=== PATIENT | female | born 1990 | race Caucasian/White ===

== ENCOUNTER → 2021-09-01 | Outpatient (CLI) | payer BC ==
--- NOTE | 2021-09-01 16:42 | MR ---
EXAMINATION TYPE: MR cspine/tspine/lspine wo con DATE OF EXAM: 09/01/2021 COMPARISON: HISTORY: Neck pain, mid back pain, and low back pain down left leg for 18 years CONTRAST: Performed utilizing 0 mL intravenous Gadavist gadolinium contrast. TECHNIQUE: Multiplanar multiecho imaging on a 3.0 Hannah magnet is performed through the entire spine FINDINGS: Cervical spine: Cervical spinal cord appears normal. Vertebral body alignment appears normal. There m ay be some minimal disc bulging present at C4-C5 without cord contact. Minimal right paracentral disc bulge is present at the C3-4 level identified in the axial plane not as apparent in the sagittal montez ne. Disc heights appear preserved. Some mild diffuse disc desiccation is present. No spinal canal charla nosis or neural foraminal stenosis is present. Thoracic spine: Spinal cord maintains normal signal. There is slight exaggeration of the mid thoracic kyphosis. Disc height are preserved. Vertebral body heights are preserved. No focal disc herniations or significant disc bulges are evident. Lumbar spine: Cord terminates at the L1 level. Disc heights are preserved. There is some mild disc de siccation L3-4 L4-5 and L5-S1. Mild disc bulges present L5-S1 with exiting nerve root contact more so on the right than the left. No compression is evident. No spinal canal stenosis is present. IMPRESSIONS: 1. There may be a minimal right paracentral disc herniation C3-4. 2. Mild disc bulge without significant thecal sac compression C4-5. 3. Mild kyphosis upper thoracic spine. 4. Disc bulge L5-S1 with exiting nerve root contact, more so on the right. Correlate with radicular s ymptoms. No stenosis is present.
== END | disposition home or self-care (01) ==
LOC: RADMRIMAIN 12:08
PROVIDERS: ATTEND Orthopaedic Surgery
DX: M50.21 Other cervical disc displacement, high cervical region (principal); M40.293 Other kyphosis, cervicothoracic region; M51.27 Other intervertebral disc displacement, lumbosacral region
CPT/HCPCS: 72141; 72146; 72148